=== PATIENT | male | born 1985 | race Caucasian/White ===

== ENCOUNTER 2020-10-04 09:20 | Observation (INO) ==
[2020-10-04] MEDS ORDERED: NS 0.9% 1000 ml BAG 1,000 ML IV ONE (09:50)
[2020-10-04 10:54] LABS: ABS Eosinophils 0.1 10^3/ul (0-0.6); ABS Lymphocytes 1.9 10^3/ul (1.0-4.8); ABS Monocytes 0.6 10^3/ul (0-0.8); ABS Neutrophils 4.2 10^3/ul (1.5-7.7); Eosinophil % 2.1 %; Hematocrit 44 % (42-52); Hemoglobin 15.3 g/dL (14.0-18.0); Lymphocyte % 27.5 %; Mean Corpuscular HGB Conc 35 g/dL (31-36); Mean Corpuscular Hemoglobin 31 pg (27-31); Mean Corpuscular Volume 90 fL (80-94); Mean Platelet Volume 8.8 fL (7.4-10.4); Platelet Count 184 10^3/uL (150-450); Red Blood Count 4.93 10^6 /uL (4.18-5.48); Red Cell Distribution Width 13 % (10-15); White Blood Count 6.8 10^3/uL (3.5-10.8)
[2020-10-04 11:11] LABS: Activated Partial Thrombo Time 33.3 seconds (26.0-38.0); Albumin/Globulin Ratio 1.7 (1-3); BUN/Creatinine Ratio 20.5 (8-20); Calcium 9.6 mg/dL (8.6-10.3); EGFR Non-African American 99.1 (>60); INR 0.96 (0.82-1.09); Magnesium 1.9 mg/dL (1.9-2.7); Potassium 3.8 mmol/L (3.5-5.0)
[2020-10-04 11:39] LABS: T4, Total 7.04 mcg/dL (6.09-12.23)
[2020-10-04 11:43] LABS: TSH Ultra Thyroid Stim Horm 1.69 mcIU/mL (0.34-5.60)
[2020-10-04] MEDS ORDERED: Ondansetron 4 mg VIAL 2 MG/ML 2 ml VIAL IV PRN (11:44)
[2020-10-04 12:32] LABS: Urine Appearance Clear; Urine Bilirubin Negative (Negative); Urine Blood Negative (Negative); Urine Color Straw; Urine Glucose Negative (Negative); Urine Ketones Negative (Negative); Urine Nitrite Negative (Negative); Urine Protein Negative (Negative); Urine Urobilinogen Negative (Negative)
[2020-10-04] MEDS ORDERED: fentaNYL 100 mcg/2 ml 50 MCG/ML VIAL ONE (14:27)
[2020-10-04] MEDS ORDERED: Midazolam 5 mg/5 ml VIAL 1 mg/ml 5 ml VIAL (5 mg) ONE (14:27)
[2020-10-04] MEDS ORDERED: Flumazenil 0.5 mg/5 ml 0.1 MG/ML 5 ml VIAL ONE (14:28)
[2020-10-04] MEDS ORDERED: Naloxone 0.4 mg VIAL 0.4 mg/ml 1 ml VIAL ONE (14:28)
[2020-10-04 15:55] VITALS: BP 124/74
== END 2020-10-04 17:05 | disposition home or self-care (01) ==
LOC: ED 09:20 → MEDTELE 09:20
PROVIDERS: ADMIT Internal Medicine; ATTEND Internal Medicine
PROC: CARDVER (ICD-10-PCS; 2020-10-04 14:50)